=== PATIENT | female | born 2005 | race Caucasian/White ===

== ENCOUNTER 2024-07-01 23:02 | Emergency (ER) | payer MEDICAID ==
[~2024-07-01] VITALS: Ht 162.6 cm; Wt 78.0 kg
[2024-07-01 23:05] VITALS: BP 127/81; PULSE 99; RESP 18; TEMP 98.4; O2SAT 99
[2024-07-01] MEDS ORDERED: ACETAMINOPHEN 325MG TABLET PO ONE (23:15)
[2024-07-01] MEDS ORDERED: LIDOCAINE 5% PATCH TOP SCH (23:15)
== END 2024-07-02 00:47 | disposition left against medical advice (07) ==
LOC: ER 23:13
DX: S20.212A Contusion of left front wall of thorax, initial encounter (principal); R07.89 Other chest pain; R06.02 Shortness of breath; F41.9 Anxiety disorder, unspecified; J45.909 Unspecified asthma, uncomplicated; X58.XXXA Exposure to other specified factors, initial encounter; Y93.89 Activity, other specified; Y92.89 Other specified places as the place of occurrence of the external cause; Y99.8 Other external cause status
CPT/HCPCS: 99283